=== PATIENT | female | born 1940 | race Caucasian/White ===

== ENCOUNTER → 2016-10-03 | Outpatient (CLI) | payer OTHER ==
--- NOTE | 2016-10-03 12:18 | DIAGNOSTIC IMAGING REPORT ---
LEFT HAND MIN 3 VIEWS ROUTINE, RIGHT HAND MIN 3 VIEWS ROUTINE HISTORY: 76 years-old Female RHEUM ARTHRITIS, OSTEOARTHRITIS OF HAND COMPARISON: None available TECHNIQUE: 3 views of the left and 3 views of the right hand. FINDINGS: Left hand: The bones are severely demineralized. There is severe radiocarpal, intercarpal and multidigit carpal metacarpal osteoarthritis with widening of the scapholunate interval. Degenerative changes are also seen involving the distal radioulnar joint with slight positive ulnar variance. Findings suggest SLAC wrist. Additionally, there are severe degenerative changes involving the interphalangeal joints of the second digit with subluxation of the PIP joint. No acute fracture or dislocation is identified. No definite erosive changes. Right wrist: The bones are severely demineralized. Moderate first carpometacarpal degenerative changes are noted in addition to mild to moderate triscaphe and radiocarpal osteoarthritis. Interphalangeal degenerative changes are noted which are severe within the DIP joints. There is suggestion of possible marginal erosions of the DIP joints. Soft tissue swelling is seen to the interphalangeal joints. Nonaggressive appearing 6 mm cystic structure involves the fifth proximal phalanx suggesting a large subcortical cyst. Similar changes are present within the first metacarpal. There is subluxation of the first PIP joint. No acute fracture or dislocation. Negative for foreign body. IMPRESSION: 1. No acute fracture or dislocation of the bilateral hands. 2. Severe bone demineralization with multifocal degenerative changes as above. 3. 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 4. Suggestion of marginal erosions involving the DIP joints, notably on the right may reflect underlying erosive arthropathy. Correlate with clinical history. The above report was generated using voice recognition software. It may contain grammatical, syntax or spelling errors. Electronically signed by: Adithya Saba M.D. 10/03/2016 12:17 PM Dictated Date/Time: 10/03/2016 12:11 PM
[2016-10-03 13:25] LABS: BASO % 0.8 %; BASO ABS # 0.06 K/uL (0-0.2); COMPLETE YES; EOS % 1.4 %; HEMATOCRIT 44.8 % (37-47); IG% 0.1 %; LYMPH % 22.9 %; LYMPH ABS # 1.79 K/uL (1.2-3.4); MEAN CELL VOLUME 96.8 fL (80-100); MEAN CORPUSCULAR HEMOGLOBIN 31.7 pg (25-34); MEAN CORPUSCULAR HGB CONC 32.8 g/dl (32-36); MEAN PLATELET VOLUME 11.2 fL (7.4-10.4); MONO % 8.9 %; NEUT % 65.9 %; PLATELET COUNT 276 K/uL (130-400); RED BLOOD COUNT 4.63 M/uL (4.2-5.4); WHITE BLOOD COUNT 7.83 K/uL (4.8-10.8)
[2016-10-03 14:20] LABS: ALT/SGPT 20 U/L (12-78); AST/SGOT 21 U/L (15-37); CREATININE 0.72 mg/dl (0.60-1.20)
[2016-10-03 14:24] LABS: ALKALINE PHOSPHATASE 141 U/L (45-117); TOTAL IRON BINDING CAPACITY 334 mcg/dl (250-450)
== END | disposition home or self-care (01) ==
LOC: C.RAD1850 11:47
PROVIDERS: ATTEND Internal Medicine Rheumatology
DX: M06.9 Rheumatoid arthritis, unspecified (principal); M19.042 Primary osteoarthritis, left hand; M19.041 Primary osteoarthritis, right hand; R74.8 Abnormal levels of other serum enzymes; Z79.899 Other long term (current) drug therapy

== ENCOUNTER → 2017-04-08 | Outpatient (CLI) | payer OTHER ==
[2017-04-08 16:27] LABS: BASO % 0.7 %; BASO ABS # 0.06 K/uL (0-0.2); EOS % 1.7 %; EOS ABS # 0.15 K/uL (0-0.5); HEMATOCRIT 43.7 % (37-47); HEMOGLOBIN 14.2 g/dL (12.0-16.0); IG# 0.02 K/uL (0.00-0.02); LYMPH % 31.1 %; LYMPH ABS # 2.77 K/uL (1.2-3.4); MEAN CORPUSCULAR HEMOGLOBIN 31.2 pg (25-34); MEAN CORPUSCULAR HGB CONC 32.5 g/dl (32-36); MEAN PLATELET VOLUME 11.1 fL (7.4-10.4); MONO % 9.2 %; MONO ABS # 0.82 K/uL (0.11-0.59); NEUT % 57.1 %; PLATELET COUNT 264 K/uL (130-400); RED CELL DISTRIBUTION WIDTH CV 13.1 % (11.5-14.5); RED CELL DISTRIBUTION WIDTH SD 45.6 fL (36.4-46.3); WHITE BLOOD COUNT 8.92 K/uL (4.8-10.8)
[2017-04-08 16:47] LABS: ALBUMIN 3.6 gm/dl (3.4-5.0); ALT/SGPT 19 U/L (12-78); AST/SGOT 18 U/L (15-37); CREATININE 0.75 mg/dl (0.60-1.20)
[2017-04-08 16:50] LABS: ALKALINE PHOSPHATASE 115 U/L (45-117); TOTAL PROTEIN 7.3 gm/dl (6.4-8.2)
== END | disposition home or self-care (01) ==
LOC: C.LAB1850 15:47
PROVIDERS: ATTEND Internal Medicine Rheumatology
DX: M06.9 Rheumatoid arthritis, unspecified (principal); Z79.899 Other long term (current) drug therapy; G56.00 Carpal tunnel syndrome, unspecified upper limb; M15.9 Polyosteoarthritis, unspecified; M79.2 Neuralgia and neuritis, unspecified